=== PATIENT | female | born 1945 | race Caucasian/White ===

== ENCOUNTER → 2017-04-12 | Day surgery (SDC) | payer MEDICARE, BC ==
[~2017-04-12] MED LIST: ACETAMINOPHEN 1000 MG/100 ML 100 ML IV ONE; ACETAMINOPHEN/HYDROcodone 325 MG/5 MG TAB ONE; ASPI81 PO; CIPR500T4 PO; FLAXOIL4; ISOSULFAN BLUE 50 MG/5 ML VIAL SQ ONE; LACTATED RINGER'S 1000 ML INJ 1,000 ML IV ONE; LEVO.1 PO; LIDOCAINE 1%/EPINEPHrine 1:100,000 SOLN 50 ML VIAL ONE; MIDAZOLAM HCL 2 MG/2 ML VIAL ONE; NEXI40CA PO; ONDANSETRON HCL 4 MG/2 ML VIAL IV PUSH ONE; PROM1SUP12 PR; PROPOFOL 200 MG/20 ML AMP IV ONE; SODIUM CHLORIDE 0.9% 250 ML ADDBAG IV ONE; TAB-TAB PO; TOPR50TA PO; VANCOMYCIN HCL 1000 MG VIAL ONE; ceFAZolin INJ 1,000 MG VIAL ONE
--- NOTE | 2017-04-21 15:39 | MP ---
cc: BASSEM ANDREWS M.D., PAMELA FACTOR, BRAD A. MD KARAKOSSIAN, SAMIRA MD DATE OF SURGERY: 04/12/2017 PROCEDURE 1. Injection Lymphazurin blue dye. 2. Intraoperative localization left axillary sentinel lymph nodes. 3. Excision of left axillary sentinel lymph node x1. 4. Needle-localized wide local excision, left breast. PREOPERATIVE DIAGNOSIS DCIS with microinvasion left breast cancer. POSTOPERATIVE DIAGNOSIS DCIS with microinvasion left breast cancer. ANESTHESIA LMA. SURGEON Don. LIFE SCIENCE TECHNICIAN SONIA Cole. ESTIMATED BLOOD LOSS 30 mL. FLUIDS 750 mL crystalloid. COMPLICATIONS None. DRAINS None. SPECIMEN Left axillary sentinel node x1, and left breast needle-localized tissue to pathology. PROCEDURE IN DETAIL The patient was taken to the Department of Nuclear Medicine where she underwent injection with technetium-99 sulfur colloid. She also had a needle localization procedure performed on the left breast. She was taken back to the Department of Nuclear Medicine where repeat imaging failed to demonstrate sentinel lymph node. The left breast was marked by the undersigned and confirmed by the patient. She was taken to the operating room and placed on the operating table in supine position. After an adequate level of laryngeal mask anesthesia was instituted the left breast and axilla were prepped and draped in the field. A timeout was taken confirming the correct patient, site and procedure to be performed. The nurse practitioner's presence was required throughout the entirety of the procedure and she was present from the beginning to the end. Her presence was required for exposure, retraction and resection of important structures. The patient had injection of Lymphazurin blue dye first in the periareolar tissue and peritumor areas, followed by gentle compression of the breast. An incision was made in the axilla and dissection carried out to where blue channels were identified. Dissection was carried out utilizing the Navigator probe identifying a single lymph node with activity above background. This was excised and careful examination of the axilla revealed no further lymph nodes that had blue dye, that had activity above background, or that were clinically suspicious by palpation. The wound was made hemostatic and then closed in two layers with interrupted 3-0 Vicryl suture and 5-0 PDS in a running subcuticular fashion. This was toweled off and attention turned to the breast. An incision was made in a circumareolar fashion from approximately the 12 o'clock to 3 o'clock position on the breast midway between the needle insertion site and the nipple-areolar complex. Dissection was then carried out laterally to the needle which was cut at the skin and brought into the wound. A core of tissue was removed including the needle. This was completely excised, oriented with silk sutures and submitted for specimen analysis. The specimen was sent to the Department of Radiology where specimen mammogram confirmed the lesion in question to be present within the specimen. The wound was made hemostatic while awaiting radiologic confirmation. With hemostasis assured, the wound was closed in two layers with interrupted 3-0 Vicryl suture and 5-0 PDS in a running subcuticular fashion. Both wounds were dressed with Steri-Strips. The patient was extubated and taken back to the recovery room in stable condition. She tolerated the procedure well. MD FELISA Faith/GANESH /1:10 PM /3:24 PM [id number]
== END | disposition home or self-care (01) ==
LOC: ESDC 06:07
PROVIDERS: ATTEND Surgery Trauma Surgery
DX: C50.912 Malignant neoplasm of unspecified site of left female breast (principal)
CPT/HCPCS: 00400; 01610; 19125; 38525; 38792; 88305; 88307; 88361; J0131; J0690; J2250; J2405; J3010; J3370; J7120; Q9968